=== PATIENT | female | born 1995 ===

== ENCOUNTER 2017-04-10 21:23 | Emergency (ER) | payer SELFPAY ==
--- NOTE | 2017-04-10 21:54 | RAD ---
HISTORY: Right shoulder pain, injury COMPARISONS: None VIEWS: 4, Frontal internal rotation, external rotation, outlet, and axillary views of the right shoulder FINDINGS: BONE DENSITY: Normal. BONES: There is no displaced fracture. JOINTS: There is no arthropathy. ALIGNMENT: There is no dislocation. SOFT TISSUES: Unremarkable. OTHER FINDINGS: None. IMPRESSION: NO ACUTE OSSEOUS INJURY. IF SYMPTOMS PERSIST, RECOMMEND REPEAT IMAGING.
--- NOTE | 2017-04-10 22:12 | UC ---
nolberto David Timothy, scribed for Jes Alberts MD on 04/10/17 at 2203 . 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 . She noted sharp pain and numbness in right anterior shoulder. Pt states sx occur only when she abductis her shoulder to 90degrees. Pain is mild. No arm weakness. No analgesia taken. No had weakness. No paresthesia. No ice applied. Pt able to continue working. RHD She denies any PMHx. Pt medication list reviewed this visit. - History of Current Complaint Stated Complaint: SHOULDER INJURY Time Seen by Provider: 04/10/17 21:58 Hx Obtained From: Patient Hx Last Menstrual Period: implanon Onset/Duration: Sudden Onset, Lasting Hours, Still Present Severity Initially: Moderate Severity Currently: Moderate Pain Intensity: 6 Pain Scale Used: 0-10 Numeric Location Of Pain: Is Discrete @ - R shoulder Character: Sharp Aggravating Factor(s): Movement Associated Signs And Symptoms: Positive: Numbness/Tingling - resolved - Allergies/Home Medications Allergies/Adverse Reactions: Allergies Allergy/AdvReac Type Severity Reaction Status Date / Time No Known Allergies Allergy Verified 04/10/17 21:32 Home Medications: Home Medications NK [No Home Medications Reported] 04/10/17 [History Confirmed 04/10/17] PMH/Surg Hx/FS Hx/Imm Hx Previously Healthy: Yes - Surgical History Surgical History: Yes Surgery Procedure, Year, and Place: repair of ankle - Family History Known Family History: Positive: Cardiac Disease, Other - osteoarthritis Negative: Hypertension, Diabetes - Social History Occupation: Employed Full-time Lives: With Family Alcohol Use: Rare Substance Use Type: None Smoking Status (MU): Never Smoked Tobacco Review of Systems Constitutional: Negative Skin: Negative Eyes: Negative ENT: Negative Respiratory: Negative Cardiovascular: Negative Gastrointestinal: Negative Genitourinary: Negative Motor: Negative Neurovascular: Negative Musculoskeletal: Other: - RUE shoulder pain Neurological: Numbness - resolved RUE Psychological: Negative All Other Systems Reviewed And Are Negative: Yes Physical Exam Triage Information Reviewed: Yes Appearance: Well-Appearing, No Pain Distress Vital Signs: Initial Vital Signs Temp 98.5 F 04/10/17 21:28 Pulse 84 04/10/17 21:28 Resp 18 04/10/17 21:28 BP 139/92 04/10/17 21:28 Pulse Ox 100 04/10/17 21:28 Vital Signs Reviewed: Yes Eye Exam: Normal ENT Exam: Normal Dental Exam: Normal Neck exam: Normal Neck: Positive: Supple, Nontender, No Lymphadenopathy Respiratory Exam: Normal Respiratory: Positive: Chest non-tender, Lungs clear, Normal breath sounds, No respiratory distress, No accessory muscle use Cardiovascular Exam: Normal Cardiovascular: Positive: RRR, No Murmur, Pulses Normal Abdominal Exam: Normal Abdomen Description: Positive: Nontender, No Organomegaly, Soft Musculoskeletal Exam: Normal Musculoskeletal: Positive: Other: - 5/5 abduction right shoulder 5/5 flexion, extension shoulder, elbow 5/5 pronate/supinate elbow 5/5 grasp no pain c/t/l/s Full AROM c spine Pt with mild discomfort with direct palpation superior aspect right shoulder at AC joint. No crepitus, no edema Neurological Exam: Normal Psychological Exam: Normal Skin Exam: Normal Diagnostics - Radiology R shoulder XR Xray Interpretation: No Acute Changes - IMPRESSION: NO ACUTE OSSEOUS INJURY. IF SYMPTOMS PERSIST, RECOMMEND REPEAT IMAGING. Radiology Interpretation Completed By: Radiologist Upper Extremity Course/Dx - Course Course Of Treatment: Agatha Lorenzo is a 21 yo female presenting to [facility] with 5 /10 RUE shoulder pain S/P lifting a Pt onto a wheel chair earlier today. Pt medication list reviewed this visit. Her RUE shoulder XR suggests no acute osseus injury. After clinical examination and reviwe of her imaging study she will be discharged home with appropriate instructions and follow up. - Differential Dx/Diagnosis Differential Diagnosis/HQI/PQRI: Fracture (Closed), Strain, Sprain Provider Diagnoses: shoulder strain Discharge - Discharge Plan Condition: Stable Disposition: HOME Patient Education Materials: Muscle Strain (ED), Shoulder Pain (ED), Ice Pack Application (ED) Forms: *Work Release Referrals: [facility] [Other] - 1 Week Additional Instructions: - Okay to alternate ibuprofen (Advil, Motrin) 600mg and tylenol every 3hours for pain. Take with food. Do NOT take for more than 4-5 days. - For the first 2 days, apply ice (wrapped in towel) for 20 minutes at a time, 2 -3 times a day. AFter 2 days, apply heat - slow gentle stretching is important - contact your doctor to schedule a follow-up appointment. Contact your doctor or return with question or concerns The documentation as recorded by the nolberto martinez Timothy accurately reflects the service I personally performed and the decisions made by me, Jes Alberts MD.
== END 2017-04-10 22:25 | disposition home or self-care (01) ==
LOC: UCEAST 21:23
DX: S46.911A Strain of unspecified muscle, fascia and tendon at shoulder and upper arm level, right arm, initial encounter (principal); X50.0XXA Overexertion from strenuous movement or load, initial encounter; Y93.F2 Activity, caregiving, lifting; Y92.9 Unspecified place or not applicable; Y99.9 Unspecified external cause status
CPT/HCPCS: 99201; G0463